=== PATIENT | male | born 1955 | race Caucasian/White ===

== ENCOUNTER 2019-04-18 11:34 | Emergency (ER) | payer OTHER ==
[2019-04-18] MEDS ORDERED: Sodium Chloride 0.9% 1000 ML 1,000 ML IV STA (12:01)
[2019-04-18] MEDS ORDERED: DUONEB 0.5-3 MG/3 ml Neb IH ONE ×2 (12:04→12:57)
--- NOTE | 2019-04-18 12:12 | ERPHSYRPT ---
- History of Present Illness Time Seen by Provider: 04/18/19 11:37 Historian: patient Exam Limitations: no limitations Patient Subjective Stated Complaint: pt here for left sided abd pain that started today with some vomiting and fever, pt was given zofran and fenytal for pain Triage Nursing Assessment: pt arrived per ambulance alert, resp easy, skin w/d/ pale-rothman in color, pt states the pain meds helped some and is co pain to left side of abd, with nausea, pt has sores on arms. pt also has decub on top of left foot Physician History: Pt is poor historian in general, he states, he started c/o upper abdominal pain , nausea, vomiting, and diarrhea since last night. He developed fever this morning, he is a smoker, coughing up phlegm, but denies chest pain, SOB, vomiting blood or coffee ground material, no bloody or black diarrhea, no urinary complaints. He was started on IV saline and 100 mcg Fentanyl, Zofran by EMS. Timing/Duration: today Activities at Onset: none Quality: cramping, sharpness Abdominal Pain Onset Location: generalized abdomen Pain Radiation: no radiation Severity of Pain-Max: severe Severity of Pain-Current: moderate Modifying Factors: Improves With: nothing Associated Symptoms: diarrhea, fever/chills, nausea, vomiting Previous symptoms: no prior history Allergies/Adverse Reactions: No Known Drug Allergies Allergy (Unverified 04/18/19 11:50) Home Medications: Apixaban [Eliquis] 5 mg DAILY 04/18/19 [History] Atorvastatin Calcium [Lipitor] 40 mg DAILY 04/18/19 [History] Budesonide/Formoterol Fumarate [Symbicort 160-4.5 Mcg Inhaler] 1 puff DAILY [History] Carvedilol 12.5 mg [Coreg 12.5 mg] 12.5 mg DAILY 04/18/19 [History] Citalopram Hydrobromide [Citalopram HBr] 20 mg DAILY 04/18/19 [History] Clopidogrel Bisulfate [Clopidogrel] 75 mg DAILY 04/18/19 [History] HydrALAzine HCL 25 MG TAB [Apresoline 25 MG TABLET] 25 mg DAILY 04/18/19 [ History] Hydrocodone/Acetaminophen [Hydrocodone-Acetamin 7.5-325] 1 ea DAILY 04/18/19 [ History] Insulin NPH/Reg 70/30 [Novolin 70/30] 1 unit DAILY 04/18/19 [History] Isosorbide Mononitrate 30 mg [Imdur 30 MG] 30 mg DAILY 04/18/19 [History] Loratadine 10 mg DAILY 04/18/19 [History] Pantoprazole Sodium [Protonix] 40 mg DAILY 04/18/19 [History] Hx Tetanus, Diphtheria Vaccination/Date Given: No Hx Influenza Vaccination/Date Given: Yes Hx Pneumococcal Vaccination/Date Given: Yes Immunizations Up to Date: No - Review of Systems Constitutional: Fever Ears, Nose, & Throat: No Symptoms Respiratory: Cough Cardiac: No Symptoms Abdominal/Gastrointestinal: Abdominal Pain, Nausea, Vomiting, Diarrhea Musculoskeletal: No Symptoms Skin: No Symptoms Neurological: No Symptoms All Other Systems: Reviewed and Negative - Past Medical History Pertinent Past Medical History: Yes Respiratory History: COPD Endocrine Medical History: Diabetes Type II - Past Surgical History Past Surgical History: Yes Other Surgical History: pt unsure - Social History Smoking Status: Current every day smoker Exposure to second hand smoke: Yes Drug Use: none Patient Lives Alone: No - Nursing Vital Signs Nursing Vital Signs: Initial Vital Signs Temperature 102.6 F 04/18/19 11:35 Pulse Rate 116 H 04/18/19 11:35 Respiratory Rate 22 04/18/19 11:35 Blood Pressure 163/113 04/18/19 11:35 O2 Sat by Pulse Oximetry 85 L 04/18/19 11:35 Pain Scale Pain Intensity 5 - Physical Exam General Appearance: mild distress Ears, Nose, Throat Exam: normal ENT inspection, pharynx normal Neck Exam: normal inspection, non-tender, supple, No mass, No JVD Respiratory Exam: rhonchi (diffuse on both sides), No chest tenderness, No respiratory distress Cardiovascular Exam: normal peripheral pulses, tachycardia, No murmur Gastrointestinal/Abdomen Exam: soft, tenderness (moderate, diffuse, upper abdomen.), distention (mild, in the upper abdomen), No guarding, No ecchymosis, No pulsatile mass, No rebound Extremity Exam: pedal edema, other (severe chronic stasis dermatitis, left foot with deformities, and two 2-3 cm diabetic ulcers (nonnecrotic), poor, but palpable pulses. Cyanotic toes on both sides.), No calf tenderness Neurologic Exam: alert, oriented x 3, normal mood/affect Skin Exam: normal color, warm, dry, No rash, No petechiae, No diaphoresis Lymphatic Exam: No adenopathy SpO2 Interpretation: hypoxic SpO2: 85 O2 Delivery: Room Air - Course Nursing assessment & vital signs reviewed: Yes EKG Interpreted by Me: RATE (102/min), A-fib, NORMAL AXIS, Non-specific ST Changes, Other (frequent PVC-s, RVH pattern) - Radiology Exams Chest X-ray Interpretation: Reviewed by me, Other (bibasilar effusions, superimposed pneumonia cannot be ruled out.) - CT Exams Chest CT Interpretation: Tele-radiologist Report, Other (PE evaluation is limited due to artifact. no central embolusnew cardiomegaly interstitial edema, and small right effusion) Abdomen/Pelvis CT Interpretation: Tele-radiologist Report, Other (ileus vs enteritis and bladder wall thickening.) Ordered Tests: Active Orders 24 hr Category Date Time Status EKG-ER Only STAT Care 04/18/19 12:01 Active IV Insertion STAT Care 04/18/19 12:01 Active NPO (ED) STAT Care 04/18/19 12:01 Active ABDOMEN AND PELVIS W CONTRAST [CT] Stat Exams 04/18/19 13:43 Completed CHEST 1 VIEW (PORTABLE) Stat Exams 04/18/19 12:02 Completed CHEST WITH CONTRAST [CT] Stat Exams 04/18/19 13:43 Completed AMYLASE Stat Lab 04/18/19 12:15 Completed BLOOD CULTURE Stat Lab 04/18/19 14:00 Received CBC W DIFF Stat Lab 04/18/19 12:01 Completed CMP Stat Lab 04/18/19 12:15 Completed CULTURE,URINE Stat Lab 04/18/19 Received D-DIMER QUANTITATION Stat Lab 04/18/19 13:44 Completed LIPASE Stat Lab 04/18/19 12:15 Completed Lactic Acid Stat Lab 04/18/19 12:01 Completed MAGNESIUM Stat Lab 04/18/19 12:15 Completed NT PRO BNP Stat Lab 04/18/19 12:15 Completed Occult Blood, Other Screening Stat Lab 04/18/19 12:02 Uncollected PROTIME WITH INR Stat Lab 04/18/19 12:15 Completed TROPONIN Q3H Lab 04/18/19 12:15 Completed TROPONIN Q3H Lab 04/18/19 15:15 Completed TROPONIN Q3H Lab 04/18/19 18:15 Ordered TROPONIN Q3H Lab 04/18/19 21:15 Ordered TROPONIN Q3H Lab 04/19/19 00:15 Ordered UA W/RFX UR CULTURE Stat Lab 04/18/19 Completed Urine Triage Profile Stat Lab 04/18/19 16:31 Completed Peak Expiratory Flow Rate ONCE RT 04/18/19 13:03 Completed Respiratory Therapy Assessment DAILY RT 04/18/19 13:03 Completed Medication Summary Generic Name Dose Route Start Last Admin Trade Name Freq PRN Reason Stop Dose Admin Ceftriaxone Sodium/Dextrose 1 g in 50 mls @ 100 mls/hr 04/18/19 17:41 Rocephin 1 Gm-D5w 50 Ml Bag IV 04/18/19 18:10 STAT STA Discontinued Medications Generic Name Dose Route Start Last Admin Trade Name Freq PRN Reason Stop Dose Admin Acetaminophen 1,000 mg 04/18/19 12:16 04/18/19 12:47 Tylenol Extra Strength 500 Mg PO 04/18/19 12:17 1,000 mg STAT STA Administration Acetaminophen Confirm 04/18/19 12:42 Tylenol Extra Strength 500 Mg Administered 04/18/19 12:43 Dose 1,000 mg .ROUTE .STK-MED ONE Albuterol/Ipratropium 3 ml 04/18/19 12:04 04/18/19 13:01 Duoneb 0.5-3 Mg/3 Ml Neb IH 04/18/19 12:05 3 ml STAT ONE Administration Albuterol/Ipratropium Confirm 04/18/19 12:57 Duoneb 0.5-3 Mg/3 Ml Neb Administered 04/18/19 12:58 Dose 3 ml IH .STK-MED ONE Fentanyl Citrate 75 mcg 04/18/19 13:43 04/18/19 14:41 Sublimaze 100 Mcg/2 Ml IV 04/18/19 13:44 75 mcg STAT ONE Administration Fentanyl Citrate Confirm 04/18/19 14:20 Sublimaze 100 Mcg/2 Ml Administered 04/18/19 14:21 Dose 100 mcg .ROUTE .STK-MED ONE Sodium Chloride 1,000 mls @ 999 mls/hr 04/18/19 12:01 04/18/19 12:46 Sodium Chloride 0.9% 1000 Ml IV 04/18/19 13:01 999 mls/hr .Q1H1M STA Administration Sodium Chloride Confirm 04/18/19 12:42 Sodium Chloride 0.9% 1000 Ml Administered 04/18/19 12:43 Dose 1,000 mls @ ud .ROUTE .STK-MED ONE Azithromycin 500 mg in 250 mls @ 250 mls/hr 04/18/19 13:42 04/18/19 14:50 Zithromax 500 Mg/ 250 Ml Nacl Premix IV 04/18/19 14:41 250 ml/hr STAT STA 250 mls/hr Administration Piperacillin Sod/Tazobactam Sod 3.375 gm in 100 mls @ 200 mls/hr 04/18/19 13: 42 Zosyn 3.375gm/100 Ml D5w IV 04/18/19 14:11 STAT STA Azithromycin Confirm 04/18/19 14:21 Zithromax 500 Mg/ 250 Ml Nacl Premix Administered 04/18/19 14:22 Dose 500 mg in 250 mls @ ud IV .STK-MED ONE Ceftriaxone Sodium/Dextrose Confirm 04/18/19 18:00 Rocephin 1 Gm-D5w 50 Ml Bag Administered 04/18/19 18:01 Dose 1 g in 50 mls @ ud IV .STK-MED ONE Lab/Rad Data: Laboratory Result Diagrams 04/18/19 12:01 04/18/19 12:15 Laboratory Results 04/18/19 04/18/19 04/18/19 Range/Units Unknown 16:31 15:15 WBC (4.0-10.5) K/mm3 RBC (4.1-5.6) M/mm3 Hgb (12.5-18.0) gm/dl Hct (42-50) % MCV (78-100) fl MCH (26-32) pg MCHC (32-36) g/dl RDW (11.5-14.0) % Plt Count (150-450) K/mm3 MPV (6-9.5) fl Gran % (36.0-66.0) % Eos # (Auto) (0-0.5) Absolute Lymphs (auto) (1.0-4.6) Absolute Monos (auto) (0.0-1.3) Lymphocytes % (24.0-44.0) % Monocytes % (0.0-12.0) % Eosinophils % (0.00-5.0) % Basophils % (0.0-0.4) % Absolute Granulocytes (1.4-6.9) Basophils # (0-0.4) PT (8.83-12.87) SECONDS INR (0.8-3.0) D-Dimer (215-500) ng/mL Sodium (137-145) mmol/L Potassium (3.5-5.1) mmol/L Chloride (98-107) mmol/L Carbon Dioxide (22-30) mmol/L Anion Gap (5-15) MEQ/L BUN (9-20) mg/dL Creatinine (0.66-1.25) mg/dL Estimated GFR ML/MIN Glucose (74-106) mg/dL Lactic Acid (0.4-2.0) Calcium (8.4-10.2) mg/dL Magnesium (1.6-2.3) mg/dL Total Bilirubin (0.2-1.3) mg/dL AST (17-59) U/L ALT (0-50) U/L Alkaline Phosphatase (38-126) U/L Troponin I 0.085 H* (0.000-0.034) ng/mL NT-Pro-B Natriuret Pep (0-900) pg/mL Serum Total Protein (6.3-8.2) g/dL Albumin (3.5-5.0) g/dL Amylase (30-110) U/L Lipase (23-300) U/L Urine Color ROLY (YELLOW) Urine Appearance SLIGHTLY CLOUDY (CLEAR) Urine pH 5.0 (5-6) Ur Specific [place] 1.041 (1.005-1.025) Urine Protein 100 (Negative) Urine Ketones NEGATIVE (NEGATIVE) Urine Blood MODERATE (0-5) Ethan/ul Urine Nitrite NEGATIVE (NEGATIVE) Urine Bilirubin NEGATIVE (NEGATIVE) Urine Urobilinogen 4 (0-1) mg/dL Ur Leukocyte Esterase NEGATIVE (NEGATIVE) Urine WBC (Auto) 6-10 (0-5) /HPF Urine RBC (Auto) 26-50 (0-2) /HPF U Epithel Cells (Auto) NONE (FEW) /HPF Urine Bacteria (Auto) RARE (NEGATIVE) /HPF Urine Mucus (Auto) SLIGHT (NEGATIVE) /HPF Urine Culture Reflexed YES (NO) Urine Glucose 50 (NEGATIVE) mg/dL Urine Opiates Level NEGATIVE (NEGATIVE) Ur Methadone NEGATIVE (NEGATIVE) Urine Barbiturates NEGATIVE (NEGATIVE) Ur Phencyclidine (PCP) NEGATIVE (NEGATIVE) Urine Amphetamine POSITIVE (NEGATIVE) U Benzodiazepine Level NEGATIVE (NEGATIVE) Urine Cocaine NEGATIVE (NEGATIVE) Urine Marijuana (THC) NEGATIVE (NEGATIVE) 04/18/19 04/18/19 04/18/19 Range/Units 13:44 12:15 12:15 WBC (4.0-10.5) K/mm3 RBC (4.1-5.6) M/mm3 Hgb (12.5-18.0) gm/dl Hct (42-50) % MCV (78-100) fl MCH (26-32) pg MCHC (32-36) g/dl RDW (11.5-14.0) % Plt Count (150-450) K/mm3 MPV (6-9.5) fl Gran % (36.0-66.0) % Eos # (Auto) (0-0.5) Absolute Lymphs (auto) (1.0-4.6) Absolute Monos (auto) (0.0-1.3) Lymphocytes % (24.0-44.0) % Monocytes % (0.0-12.0) % Eosinophils % (0.00-5.0) % Basophils % (0.0-0.4) % Absolute Granulocytes (1.4-6.9) Basophils # (0-0.4) PT (8.83-12.87) SECONDS INR (0.8-3.0) D-Dimer 1368 H* (215-500) ng/mL Sodium (137-145) mmol/L Potassium (3.5-5.1) mmol/L Chloride (98-107) mmol/L Carbon Dioxide (22-30) mmol/L Anion Gap (5-15) MEQ/L BUN (9-20) mg/dL Creatinine (0.66-1.25) mg/dL Estimated GFR ML/MIN Glucose (74-106) mg/dL Lactic Acid (0.4-2.0) Calcium (8.4-10.2) mg/dL Magnesium 1.6 (1.6-2.3) mg/dL Total Bilirubin (0.2-1.3) mg/dL AST (17-59) U/L ALT (0-50) U/L Alkaline Phosphatase (38-126) U/L Troponin I (0.000-0.034) ng/mL NT-Pro-B Natriuret Pep 3950 H (0-900) pg/mL Serum Total Protein (6.3-8.2) g/dL Albumin (3.5-5.0) g/dL Amylase (30-110) U/L Lipase (23-300) U/L Urine Color (YELLOW) Urine Appearance (CLEAR) Urine pH (5-6) Ur Specific [place] (1.005-1.025) Urine Protein (Negative) Urine Ketones (NEGATIVE) Urine Blood (0-5) Ethan/ul Urine Nitrite (NEGATIVE) Urine Bilirubin (NEGATIVE) Urine Urobilinogen (0-1) mg/dL Ur Leukocyte Esterase (NEGATIVE) Urine WBC (Auto) (0-5) /HPF Urine RBC (Auto) (0-2) /HPF U Epithel Cells (Auto) (FEW) /HPF Urine Bacteria (Auto) (NEGATIVE) /HPF Urine Mucus (Auto) (NEGATIVE) /HPF Urine Culture Reflexed (NO) Urine Glucose (NEGATIVE) mg/dL Urine Opiates Level (NEGATIVE) Ur Methadone (NEGATIVE) Urine Barbiturates (NEGATIVE) Ur Phencyclidine (PCP) (NEGATIVE) Urine Amphetamine (NEGATIVE) U Benzodiazepine Level (NEGATIVE) Urine Cocaine (NEGATIVE) Urine Marijuana (THC) (NEGATIVE) 04/18/19 04/18/19 04/18/19 Range/Units 12:15 12:15 12:15 WBC (4.0-10.5) K/mm3 RBC (4.1-5.6) M/mm3 Hgb (12.5-18.0) gm/dl Hct (42-50) % MCV (78-100) fl MCH (26-32) pg MCHC (32-36) g/dl RDW (11.5-14.0) % Plt Count (150-450) K/mm3 MPV (6-9.5) fl Gran % (36.0-66.0) % Eos # (Auto) (0-0.5) Absolute Lymphs (auto) (1.0-4.6) Absolute Monos (auto) (0.0-1.3) Lymphocytes % (24.0-44.0) % Monocytes % (0.0-12.0) % Eosinophils % (0.00-5.0) % Basophils % (0.0-0.4) % Absolute Granulocytes (1.4-6.9) Basophils # (0-0.4) PT 18.2 H (8.83-12.87) SECONDS INR 1.60 (0.8-3.0) D-Dimer (215-500) ng/mL Sodium 137 (137-145) mmol/L Potassium 4.7 (3.5-5.1) mmol/L Chloride 101 (98-107) mmol/L Carbon Dioxide 25 (22-30) mmol/L Anion Gap 15.9 H (5-15) MEQ/L BUN 16 (9-20) mg/dL Creatinine 1.16 (0.66-1.25) mg/dL Estimated GFR > 60.0 ML/MIN Glucose 134 H (74-106) mg/dL Lactic Acid (0.4-2.0) Calcium 9.0 (8.4-10.2) mg/dL Magnesium (1.6-2.3) mg/dL Total Bilirubin 1.30 (0.2-1.3) mg/dL AST 21 (17-59) U/L ALT 14 (0-50) U/L Alkaline Phosphatase 143 H (38-126) U/L Troponin I 0.072 H* (0.000-0.034) ng/mL NT-Pro-B Natriuret Pep (0-900) pg/mL Serum Total Protein 8.1 (6.3-8.2) g/dL Albumin 4.0 (3.5-5.0) g/dL Amylase 50 (30-110) U/L Lipase 44 (23-300) U/L Urine Color (YELLOW) Urine Appearance (CLEAR) Urine pH (5-6) Ur Specific [place] (1.005-1.025) Urine Protein (Negative) Urine Ketones (NEGATIVE) Urine Blood (0-5) Ethan/ul Urine Nitrite (NEGATIVE) Urine Bilirubin (NEGATIVE) Urine Urobilinogen (0-1) mg/dL Ur Leukocyte Esterase (NEGATIVE) Urine WBC (Auto) (0-5) /HPF Urine RBC (Auto) (0-2) /HPF U Epithel Cells (Auto) (FEW) /HPF Urine Bacteria (Auto) (NEGATIVE) /HPF Urine Mucus (Auto) (NEGATIVE) /HPF Urine Culture Reflexed (NO) Urine Glucose (NEGATIVE) mg/dL Urine Opiates Level (NEGATIVE) Ur Methadone (NEGATIVE) Urine Barbiturates (NEGATIVE) Ur Phencyclidine (PCP) (NEGATIVE) Urine Amphetamine (NEGATIVE) U Benzodiazepine Level (NEGATIVE) Urine Cocaine (NEGATIVE) Urine Marijuana (THC) (NEGATIVE) 04/18/19 04/18/19 Range/Units 12:01 12:01 WBC 24.3 H (4.0-10.5) K/mm3 RBC 4.35 (4.1-5.6) M/mm3 Hgb 12.3 L (12.5-18.0) gm/dl Hct 39.8 L (42-50) % MCV 91.5 (78-100) fl MCH 28.2 (26-32) pg MCHC 30.9 L (32-36) g/dl RDW 17.3 H (11.5-14.0) % Plt Count 237 (150-450) K/mm3 MPV 10.4 H (6-9.5) fl Gran % 92.0 H (36.0-66.0) % Eos # (Auto) 0.05 (0-0.5) Absolute Lymphs (auto) 0.79 L (1.0-4.6) Absolute Monos (auto) 1.04 (0.0-1.3) Lymphocytes % 3.3 L (24.0-44.0) % Monocytes % 4.3 (0.0-12.0) % Eosinophils % 0.2 (0.00-5.0) % Basophils % 0.2 (0.0-0.4) % Absolute Granulocytes 22.36 H (1.4-6.9) Basophils # 0.04 (0-0.4) PT (8.83-12.87) SECONDS INR (0.8-3.0) D-Dimer (215-500) ng/mL Sodium (137-145) mmol/L Potassium (3.5-5.1) mmol/L Chloride (98-107) mmol/L Carbon Dioxide (22-30) mmol/L Anion Gap (5-15) MEQ/L BUN (9-20) mg/dL Creatinine (0.66-1.25) mg/dL Estimated GFR ML/MIN Glucose (74-106) mg/dL Lactic Acid 1.2 (0.4-2.0) Calcium (8.4-10.2) mg/dL Magnesium (1.6-2.3) mg/dL Total Bilirubin (0.2-1.3) mg/dL AST (17-59) U/L ALT (0-50) U/L Alkaline Phosphatase (38-126) U/L Troponin I (0.000-0.034) ng/mL NT-Pro-B Natriuret Pep (0-900) pg/mL Serum Total Protein (6.3-8.2) g/dL Albumin (3.5-5.0) g/dL Amylase (30-110) U/L Lipase (23-300) U/L Urine Color (YELLOW) Urine Appearance (CLEAR) Urine pH (5-6) Ur Specific [place] (1.005-1.025) Urine Protein (Negative) Urine Ketones (NEGATIVE) Urine Blood (0-5) Ethan/ul Urine Nitrite (NEGATIVE) Urine Bilirubin (NEGATIVE) Urine Urobilinogen (0-1) mg/dL Ur Leukocyte Esterase (NEGATIVE) Urine WBC (Auto) (0-5) /HPF Urine RBC (Auto) (0-2) /HPF U Epithel Cells (Auto) (FEW) /HPF Urine Bacteria (Auto) (NEGATIVE) /HPF Urine Mucus (Auto) (NEGATIVE) /HPF Urine Culture Reflexed (NO) Urine Glucose (NEGATIVE) mg/dL Urine Opiates Level (NEGATIVE) Ur Methadone (NEGATIVE) Urine Barbiturates (NEGATIVE) Ur Phencyclidine (PCP) (NEGATIVE) Urine Amphetamine (NEGATIVE) U Benzodiazepine Level (NEGATIVE) Urine Cocaine (NEGATIVE) Urine Marijuana (THC) (NEGATIVE) - Progress Progress: improved Progress Note: 04/18/19 18:09 Pt was given Tylenol, NS bolus, temp: 99.2 F, improved after Fentanyl 75 mcg IV , reviewed his CT and X ray, lab results, PE cannot be ruled out, repeat troponin elevated (0.072-0.083 respectively) denies chest pain or SOB, abdominal pain improved. We reviewed his results and called [facility] [place] [facility] , his classifier tender is Dr Francisco, discussed with transfer center, and accepted to be transferred, Dr Garcia Plummer is accepting physician. Counseled pt/family regarding: lab results, diagnosis, rad results - Departure Departure Disposition: Transfer Clinical Impression: Elevated troponin, Gastroenteritis Pneumonia Qualifiers: Pneumonia type: due to unspecified organism Laterality: unspecified laterality Lung location: unspecified part of lung Qualified Code(s): J18.9 - Pneumonia, unspecified organism CHF (congestive heart failure) Qualifiers: Heart failure type: unspecified Heart failure chronicity: unspecified Qualified Code(s): I50.9 - Heart failure, unspecified Condition: Stable Critical Care Time: No Referrals: BUNNY SMITH MD [Primary Care Provider] - Instructions: Heart Failure
[2019-04-18] MEDS ORDERED: TYLENOL EXTRA STRENGTH 500 MG PO STA (12:16)
[2019-04-18 12:29] LABS: BASOPHIL % 0.2 % (0.0-0.4); Basophil (Absolute #) 0.04 (0-0.4); Eosinophil % 0.2 % (0.00-5.0); Eosinophil (Absolute #) 0.05 (0-0.5); Granulocyte Absolute (ANC) 22.36 (1.4-6.9); Hematocrit 39.8 % (42-50); Hemoglobin 12.3 gm/dl (12.5-18.0); Lymphocyte (Absolute #) 0.79 (1.0-4.6); Lymphocytes % 3.3 % (24.0-44.0); Mean Cell Volume 91.5 fl (78-100); Mean Corpuscular Hemoglobin 28.2 pg (26-32); Mean Corpuscular Hgb Concent. 30.9 g/dl (32-36); Mean Platelet Volume 10.4 fl (6-9.5); Monocytes % 4.3 % (0.0-12.0); Platelet Count 237 K/mm3 (150-450); Red Blood Count 4.35 M/mm3 (4.1-5.6); Red Cell Distribution Width 17.3 % (11.5-14.0); White Blood Count 24.3 K/mm3 (4.0-10.5)
[2019-04-18 12:34] LABS: INR 1.6 (0.8-3.0); PROTIME 18.2 SECONDS (8.83-12.87)
[2019-04-18 12:39] LABS: ALKALINE PHOSPHATASE 143 U/L (38-126); AMYLASE 50 U/L (30-110); ANION GAP 15.9 MEQ/L (5-15); BLOOD UREA NITROGEN 16 mg/dL (9-20); CHLORIDE 101 mmol/L (98-107); Carbon Dioxide 25 mmol/L (22-30); Creatinine 1 1.16 mg/dL (0.66-1.25); Glucose 134 mg/dL (74-106); LIPASE 44 U/L (23-300); Potassium 4.7 mmol/L (3.5-5.1); SGOT/AST 21 U/L (17-59); SGPT/ALT 14 U/L (0-50); SODIUM 137 mmol/L (137-145); Total Protein 8.1 g/dL (6.3-8.2)
[2019-04-18] MEDS ORDERED: TYLENOL EXTRA STRENGTH 500 MG ONE (12:42)
[2019-04-18] MEDS ORDERED: Sodium Chloride 0.9% 1000 ML 1,000 ML ONE (12:42)
--- NOTE | 2019-04-18 12:53 | XRAY ---
Indication: Chest pain. Vomiting. Comparison: October 24, 2010. Portable chest demonstrates new cardiomegaly, vascular congestion, and tiny bibasilar effusions concerning for cardiac decompensation. Superimposed pneumonia not completely excluded. Bony thorax intact with new sternotomy wires.
[2019-04-18] MEDS ORDERED: Zosyn 3.375GM/100 Ml D5W 3.375 GM/100 ML IVPB IV STA (13:42)
[2019-04-18] MEDS ORDERED: Zithromax 500 MG/ 250 ML NaCl Premix 500 MG/250 ML IVPB IV STA (13:42)
[2019-04-18] MEDS ORDERED: SUBLIMAZE 100 MCG/2 ML IV ONE (13:43)
[2019-04-18] MEDS ORDERED: SUBLIMAZE 100 MCG/2 ML ONE (14:20)
[2019-04-18] MEDS ORDERED: Zithromax 500 MG/ 250 ML NaCl Premix 500 MG/250 ML IVPB IV ONE (14:21)
--- NOTE | 2019-04-18 15:47 | XRAY ---
Indication: Abdominal/pelvic pain. Multiple contiguous axial images obtained through the abdomen and pelvis using 100 cc Isovue 370 contrast only. Comparison: None CT chest reported separately. Noncontrasted stomach and bowel loops appear nonobstructed. Ileal bowel loops are mildly fluid distended with fluid leveling unchanged on delayed imaging, ileus versus enteritis. Normal appendix. No free fluid/air. Urinary bladder is normally distended with mild circumferential wall thickening either incomplete distention versus cystitis. A few hepatic calcified granulomas. Fatty-replaced pancreas. Remaining liver, gallbladder, pancreas, spleen, adrenal glands, kidneys, ureters, and bladder appear unremarkable. Moderate scattered vascular calcifications. Distal fusiform AAA measuring 4.5 x 5 cm in diameter and at least 7 cm in length. No pathologic retroperitoneal lymphadenopathy. Osseous structures intact with mild degenerative changes throughout the spine and both hips. No ventral or inguinal hernias. Impression: 1. Mild fluid distended ileal small bowel loops with fluid leveling, ileus versus enteritis. 2. Mild urinary bladder wall thickening, incomplete distention versus cystitis. 3. Scattered arteriosclerotic disease with distal AAA. CT DI 28.14
--- NOTE | 2019-04-18 15:51 | XRAY ---
Indication: Chest pain. Elevated d-dimer. Multiple contiguous axial images obtained through the chest using 100 cc Isovue 370 contrast and PE protocol. Comparison: October 24, 2010. There is satisfactory opacification of the pulmonary arteries to include the lobar and segmental branches. However mild respiration artifact limits evaluation of the more distal lobar and segmental branches. No central pulmonary embolus. Heart is now enlarged. No paracardial effusion. Aorta is normal in course and caliber without aneurysm/dissection. Mild scattered aortic and coronary calcifications. Stable small mediastinal lymph nodes. No pathologic mediastinal/hilar lymphadenopathy. Examination of the lung parenchyma demonstrates new mild interstitial edema and small right effusion. Again mild bilateral dependent atelectasis and minimal bibasilar fibrosis/scarring. No suspicious pulmonary mass/nodule. Bony thorax intact again with minimal generative changes throughout the spine. New sternotomy wires. CT abdomen reported separately. Impression: 1. Pulmonary embolus evaluation limited by respiration artifact. No central pulmonary embolus. 2. New cardiomegaly, interstitial edema, and small right effusion. Rule out mild/early cardiac decompensation. CT DI 28.14
[2019-04-18 17:34] LABS: Appearance SLIGHTLY CLOUDY (CLEAR); Bacteria RARE /HPF (NEGATIVE); Bilirubin NEGATIVE (NEGATIVE); Blood MODERATE Ery/ul (0-5); Glucose 50 mg/dL (NEGATIVE); Ketones NEGATIVE (NEGATIVE); Leukocyte Esterase NEGATIVE (NEGATIVE); Mucus SLIGHT /HPF (NEGATIVE); Nitrite NEGATIVE (NEGATIVE); Protein,Urine Dip 100 (Negative); RBC 26-50 /HPF (0-2); Specific Gravity 1.041 (1.005-1.025); Urobilinogen 4 mg/dL (0-1)
[2019-04-18] MEDS ORDERED: ROCEPHIN 1 Gm-D5w 50 ml Bag** 1 G/50 ML IVPB IV STA (17:41)
[2019-04-18 17:44] LABS: Amphetamine,Urine POSITIVE (NEGATIVE); Barbiturate,Urine NEGATIVE (NEGATIVE); Benzodiazepine,Urine NEGATIVE (NEGATIVE); Cocaine,Urine NEGATIVE (NEGATIVE); Methadone,Urine NEGATIVE (NEGATIVE); Opiate,Urine NEGATIVE (NEGATIVE); PCP,Urine NEGATIVE (NEGATIVE); THC,Urine NEGATIVE (NEGATIVE)
[2019-04-18] MEDS ORDERED: ROCEPHIN 1 Gm-D5w 50 ml Bag** 1 G/50 ML IVPB IV ONE (18:00)
[2019-04-18 19:00] VITALS: BP 122/76; PULSE 100; O2SAT 96
== END 2019-04-18 19:07 | disposition short-term general hospital (02) ==
LOC: ED 11:34
DX: R74.8 Abnormal levels of other serum enzymes (principal); K52.9 Noninfective gastroenteritis and colitis, unspecified; J18.9 Pneumonia, unspecified organism; I50.9 Heart failure, unspecified; R09.02 Hypoxemia; E11.9 Type 2 diabetes mellitus without complications; Z79.01 Long term (current) use of anticoagulants; Z79.899 Other long term (current) drug therapy
CPT/HCPCS: 36415; 71045; 71260; 74177; 80053; 80307; 81001; 82150; 82962; 83605; 83690; 83735; 83880; 84484; 85025; 85379; 85610; 87040; 87077; 87086; 93005; 94150; 94640; 96360; 96365; 96367; 96374; 99285; J0456; J0696; J3010; A9270-GY